=== PATIENT | male | born 2000 | race African-American/Black ===

== ENCOUNTER 2025-03-18 11:48 | Inpatient (IN) | payer OTHER ==
[~2025-03-18] VITALS: Ht 177.8 cm; Wt 113.4 kg
[2025-03-18] VITALS (7 sets, daily range): BP systolic 133–153; BP diastolic 73–85; PULSE 75–84; RESP 16–20; TEMP 97.9–98.6; O2SAT 98–100
[2025-03-18] MEDS ORDERED: SODIUM CHLORIDE 0.9% 1000ML 2,000 ML ONE (11:57)
[2025-03-18] MEDS: LACTATED RINGER'S 1,000 ML INJ ONE ×2 (12:49)
[2025-03-18 12:57] LABS: BASOPHILS % 0.4 % (0.0-1.0); EOSINOPHILS # (AUTO) 0.1 (0.0-0.4); EOSINOPHILS % 0.6 % (0.0-6.0); HEMATOCRIT 47.6 % (38.2-49.6); HEMOGLOBIN 16.2 g/dL (14.0-18.0); LYMPHOCYTES # (AUTO) 2.3 (1.0-3.2); LYMPHOCYTES % 23.1 % (18.0-39.1); MEAN CORPUSCULAR HEMOGLOBIN 29.9 pg (28-32); MEAN CORPUSCULAR VOLUME 87.8 fL (81-99); MONOCYTES # (AUTO) 0.8 (0.2-0.8); MONOCYTES % 7.7 % (4.4-11.3); NEUTROPHILS # (AUTO) 6.8 (2.1-6.9); NEUTROPHILS % 67.3 % (38.7-80.0); PLATELET COUNT 358 x10e3/uL (140-360); RED BLOOD COUNT 5.42 x10e6/uL (4.3-5.7); RED CELL DISTRIBUTION WIDTH 12.1 % (11.7-14.4); WHITE BLOOD COUNT 10.14 x10e3/uL (4.8-10.8)
[2025-03-18] MEDS ORDERED: IOPAMIDOL 370 MG/ML 100 ML INFUS..BTL INJ ONE (13:08)
[2025-03-18] MEDS ORDERED: SODIUM CHLORIDE 0.9% 100 ML ONE (13:08)
[2025-03-18 13:20] LABS: INR 0.86; PARTIAL THROMBOPLASTIN TIME 22.3 seconds (23.8-35.5); PROTHROMBIN TIME 12.5 seconds (11.9-14.5)
[2025-03-18 13:32] LABS: ALBUMIN/GLOBULIN RATIO 1.4 (0.8-2.0); ANION GAP 20.4 mmol/L (8-16); BILIRUBIN,TOTAL 0.8 mg/dL (0.2-1.2); CALCIUM 10.8 mg/dL (8.4-10.2); CREATININE, SERUM 1.93 mg/dL (0.72-1.25); MAGNESIUM 2.1 MG/DL (1.3-2.1); TOTAL PROTEIN 8.5 g/dL (6.5-8.1)
[2025-03-18 13:35] LABS: POTASSIUM 3.4 mmol/L (3.5-5.1)
[2025-03-18 13:38] LABS: TROPONIN I 0.002 ng/mL (0-0.300)
[2025-03-18 14:25] LABS: AMPHETAMINES SCREEN,URINE NEGATIVE (NEGATIVE); BENZODIAZEPINES SCREEN,URINE NEGATIVE (NEGATIVE); CANNABINOIDS SCREEN,URINE POSITIVE (NEGATIVE); COCAINE SCREEN,URINE NEGATIVE (NEGATIVE); METHADONE SCREEN, URINE NEGATIVE (NEGATIVE); OPIATES SCREEN,URINE NEGATIVE (NEGATIVE); PHENCYCLIDINE SCREEN,URINE NEGATIVE (NEGATIVE)
[2025-03-18 14:27] LABS: BILIRUBIN,URINE NEGATIVE (NEGATIVE); CLARITY,URINE CLEAR (CLEAR); COLOR,URINE YELLOW (YELLOW); GLUCOSE, URINE NEGATIVE (NEGATIVE); KETONES,URINE NEGATIVE (NEGATIVE); LEUKOCYTE ESTERASE ,URINE NEGATIVE (NEGATIVE); NITRITE,URINE NEGATIVE (NEGATIVE); PH,URINE 5.5 (5 - 7); PROTEIN,URINE DIPSTICK 1+ (NEGATIVE); URINE UROBILINOGEN 0.2 mg/dL (0.2 - 1)
[2025-03-18 14:32] LABS: EPITHELIAL CELLS,URINE RARE /LPF; RBC,URINE 0-5 /HPF (0-5); WBC,URINE (MAN) 0-5 /HPF (0-5)
[2025-03-18] MEDS ORDERED: FAMOTIDINE 20 MG/2 ML VIAL IV SCH (15:15)
[2025-03-18] MEDS: SODIUM CHLORIDE 0.9% 1000ML 1,000 ML IV SCH (18:38)
[2025-03-18] MEDS: ONDANSETRON HCL INJ 2MG/ML 2ML 2 MG/ML VIAL IV PRN (20:48)
[2025-03-18] MEDS: Morphine 4mg INJECTION 4 MG/ML INJ IV PRN (20:49)
[2025-03-18] MEDS: POTASSIUM CHLORIDE 20MEQ/100ML 100 ML IV ONE (20:50)
[2025-03-18] MEDS ORDERED: BUSPIRONE HCL 5 MG TAB PO PRN (21:15)
[2025-03-18] MEDS ORDERED: Morphine 2mg Syringe 2 MG/ML SYR IV PRN (23:15)
[2025-03-19 05:57] LABS: BASOPHILS % 0.3 % (0.0-1.0); EOSINOPHILS # (AUTO) 0.1 (0.0-0.4); EOSINOPHILS % 0.9 % (0.0-6.0); HEMATOCRIT 42.3 % (38.2-49.6); HEMOGLOBIN 14.3 g/dL (14.0-18.0); LYMPHOCYTES # (AUTO) 2.1 (1.0-3.2); LYMPHOCYTES % 23.6 % (18.0-39.1); MEAN CORPUSCULAR HEMOGLOBIN 30.2 pg (28-32); MEAN CORPUSCULAR HGB CONC 33.8 g/dL (31-35); MEAN CORPUSCULAR VOLUME 89.2 fL (81-99); MONOCYTES # (AUTO) 0.8 (0.2-0.8); MONOCYTES % 9.3 % (4.4-11.3); NEUTROPHILS # (AUTO) 5.8 (2.1-6.9); NEUTROPHILS % 65.7 % (38.7-80.0); PLATELET COUNT 287 x10e3/uL (140-360); RED BLOOD COUNT 4.74 x10e6/uL (4.3-5.7); RED CELL DISTRIBUTION WIDTH 12.1 % (11.7-14.4); WHITE BLOOD COUNT 8.78 x10e3/uL (4.8-10.8)
[2025-03-19 06:35] LABS: ALBUMIN 3.8 g/dL (3.5-5.0); ALBUMIN/GLOBULIN RATIO 1.4 (0.8-2.0); ANION GAP 13.2 mmol/L (8-16); BILIRUBIN,TOTAL 0.7 mg/dL (0.2-1.2); CALCIUM 8.9 mg/dL (8.4-10.2); CREATININE, SERUM 1.28 mg/dL (0.72-1.25); POTASSIUM 4.2 mmol/L (3.5-5.1); TOTAL PROTEIN 6.6 g/dL (6.5-8.1)
[2025-03-19 06:51] LABS: CHOL/HDL RATIO 3.1 (3.9-4.7)
[2025-03-19 06:59] LABS: TROPONIN I 0.008 ng/mL (0-0.300)
[2025-03-19 07:11] LABS: THYROID STIMULATING HORMONE 1.829 uIU/mL (0.350-4.940)
[2025-03-19 07:44] VITALS: BP 129/71; PULSE 80; RESP 19; TEMP 98.1; O2SAT 100
[2025-03-19 08:05] VITALS: BP 129/71; PULSE 80; RESP 19; TEMP 98.1; O2SAT 100
[2025-03-19] MEDS: BUPROPION HCL 150 MG TABCR PO SCH (09:04)
[2025-03-19 11:30] VITALS: BP 119/63; PULSE 73; RESP 18; TEMP 97.7; O2SAT 100
[2025-03-19 13:10] LABS: TROPONIN I 0.013 ng/mL (0-0.300)
[2025-03-19 15:26] VITALS: BP 116/53; PULSE 78; RESP 21; TEMP 98.5; O2SAT 98
[2025-03-19] MEDS: SODIUM CHLORIDE 0.9% 1000ML 1,000 ML IV SCH (18:49)
[2025-03-19 20:00] VITALS: BP 129/72; PULSE 81; RESP 20; TEMP 98.1; O2SAT 99
[2025-03-19 21:00] VITALS: BP 129/72; PULSE 81; RESP 20; TEMP 98; O2SAT 99
[2025-03-20] VITALS (8 sets, daily range): BP systolic 110–140; BP diastolic 57–79; PULSE 71–82; RESP 19–21; TEMP 97.7–98.2; O2SAT 97–100
[2025-03-20 06:15] LABS: BASOPHILS % 0.5 % (0.0-1.0); EOSINOPHILS # (AUTO) 0.1 (0.0-0.4); EOSINOPHILS % 1.5 % (0.0-6.0); HEMATOCRIT 40.3 % (38.2-49.6); HEMOGLOBIN 13.4 g/dL (14.0-18.0); LYMPHOCYTES % 30.8 % (18.0-39.1); MEAN CORPUSCULAR HEMOGLOBIN 30.3 pg (28-32); MEAN CORPUSCULAR HGB CONC 33.3 g/dL (31-35); MEAN CORPUSCULAR VOLUME 91.2 fL (81-99); MONOCYTES # (AUTO) 0.6 (0.2-0.8); MONOCYTES % 9.5 % (4.4-11.3); NEUTROPHILS # (AUTO) 3.8 (2.1-6.9); NEUTROPHILS % 57.4 % (38.7-80.0); PLATELET COUNT 269 x10e3/uL (140-360); RED BLOOD COUNT 4.42 x10e6/uL (4.3-5.7); RED CELL DISTRIBUTION WIDTH 11.9 % (11.7-14.4); WHITE BLOOD COUNT 6.56 x10e3/uL (4.8-10.8)
[2025-03-20 06:42] LABS: ALBUMIN 3.4 g/dL (3.5-5.0); ALBUMIN/GLOBULIN RATIO 1.3 (0.8-2.0); ANION GAP 10.3 mmol/L (8-16); BILIRUBIN,TOTAL 0.7 mg/dL (0.2-1.2); CALCIUM 8.8 mg/dL (8.4-10.2); CREATININE, SERUM 1.17 mg/dL (0.72-1.25); POTASSIUM 4.3 mmol/L (3.5-5.1)
[2025-03-21] VITALS: BP 128/70; PULSE 90; RESP 20; TEMP 98.6; O2SAT 100
[2025-03-21 04:00] VITALS: BP 120/64; PULSE 77; RESP 20; TEMP 97.7; O2SAT 100
[2025-03-21 06:09] LABS: ALBUMIN 3.6 g/dL (3.5-5.0); ALBUMIN/GLOBULIN RATIO 1.4 (0.8-2.0); ANION GAP 13.1 mmol/L (8-16); BILIRUBIN,TOTAL 0.5 mg/dL (0.2-1.2); CALCIUM 9.1 mg/dL (8.4-10.2); CREATININE, SERUM 1.18 mg/dL (0.72-1.25); POTASSIUM 5.1 mmol/L (3.5-5.1); TOTAL PROTEIN 6.1 g/dL (6.5-8.1)
[2025-03-21 08:10] VITALS: BP 146/78; PULSE 96; RESP 18; TEMP 98; O2SAT 100
== END 2025-03-21 11:48 | disposition home or self-care (01) | DRG 558 ==
LOC: EDBD 11:48 → ER 11:53 → ERHOLD 15:15 → MED/SURG2 16:05 → OBSVTOIN 03-19 15:47
PROVIDERS: ADMIT Family Medicine Adult Medicine; ATTEND Family Medicine Adult Medicine
DX: M62.82 Rhabdomyolysis (principal); N17.9 Acute kidney failure, unspecified; T67.5XXA Heat exhaustion, unspecified, initial encounter; X58.XXXA Exposure to other specified factors, initial encounter; Y92.9 Unspecified place or not applicable; E86.0 Dehydration; R03.0 Elevated blood-pressure reading, without diagnosis of hypertension; F12.90 Cannabis use, unspecified, uncomplicated; E83.52 Hypercalcemia; F41.8 Other specified anxiety disorders; E66.9 Obesity, unspecified; R94.31 Abnormal electrocardiogram [ECG] [EKG]; R59.0 Localized enlarged lymph nodes; R61 Generalized hyperhidrosis; Z72.0 Tobacco use; Z91.040 Latex allergy status; Z88.0 Allergy status to penicillin; Z91.018 Allergy to other foods; Z68.35 Body mass index [BMI] 35.0-35.9, adult; Z83.3 Family history of diabetes mellitus; Z82.49 Family history of ischemic heart disease and other diseases of the circulatory system
CPT/HCPCS: 36415; 71045; 71275; 74174; 80053; 80061; 80307; 81001; 82550; 82948; 83735; 84443; 84484; 85025; 85610; 85730; 93005; 93306; 99252; 99284; G0378; J2270; J2405; J3480; J7030; J7050; Q9967